=== PATIENT | female | born 1975 | race Native Hawaiian/Other Pacific Islander ===

== ENCOUNTER 2020-08-19 08:51 | Outpatient (CLI) | payer OTHER | END 2020-08-19 22:26 | disposition home or self-care (01) | LOC: US 08:51 | DX: R10.11 Right upper quadrant pain (principal) ==

== ENCOUNTER 2020-08-25 08:18 | Outpatient (CLI) | payer OTHER | END 2020-08-25 20:25 | disposition home or self-care (01) | LOC: NM 08:18 | DX: R10.11 Right upper quadrant pain (principal) | CPT/HCPCS: A9537 ==